=== PATIENT | male | born 1995 | race American Indian/Alaskan Native ===

== ENCOUNTER 2023-02-01 14:26 | Emergency (ER) | payer OTHER ==
[~2023-02-01] VITALS: Ht 175.3 cm; Wt 88.5 kg
[2023-02-01] MEDS ORDERED: OMEPRAZOLE20 MG PO (14:49)
[2023-02-01 16:23] VITALS: BP 119/80
--- NOTE | 2023-02-02 22:15 | EKG ---
[facility] [address] [facility] [place] [address] Signed Normal sinus rhythm with sinus arrhythmia Left anterior fascicular block Abnormal ECG When compared with ECG of 04-JUN-2016 06:40, sinus arrhythmia is now present Confirmed by Kirstin Rogers MD () on 02/02/2023 10:15:49 PM Electronically Signed By: KIRSTIN ROGERS MD 02/02/23 2215 PATIENT NAME: SHELBYKARLEY HARVEY Electrocardiogram DATE OF : [birth year] PHYSICIAN: KIRSTIN ROGERS MD REPORT #: [id number] REPORT IS CONFIDENTIAL AND NOT TO BE RELEASED WITHOUT AUTHORIZATION
== END 2023-02-01 16:23 | disposition home or self-care (01) ==
LOC: ED 14:26
DX: R07.89 Other chest pain (principal); Z88.2 Allergy status to sulfonamides
CPT/HCPCS: 36415; 71046; 80053; 84484; 85025; 93005; 93010; 99285-25

== ENCOUNTER 2024-08-26 15:48 | Observation (INO) | payer OTHER ==
[~2024-08-26] VITALS: Ht 175.3 cm; Wt 107.4 kg
[~2024-08-26 15:48] MED LIST: OMEPRAZOLE20 MG PO
[2024-08-26] MEDS ORDERED: ondansetron HCL 4 MG/2 ML VIAL IV ONE (16:15)
[2024-08-26] MEDS ORDERED: SODIUM CHLORIDE 0.9% 1,000 ML IV ONE (16:15)
[2024-08-26] MEDS ORDERED: MORPHINE SULFATE 4 MG/ML VIAL IV ONE (16:15)
[2024-08-26] MEDS ORDERED: SEVOFLURANE 250 ML BTL INH ONE (16:35)
[2024-08-26] MEDS ORDERED: LACTATED RINGER'S 1,000 ML IV SCH ×3 (17:30→21:15)
[2024-08-26] MEDS ORDERED: FAMOTIDINE 20 MG/ 2 ML VIAL IV ONE (17:30)
[2024-08-26] MEDS ORDERED: CEFTRIAXONE SODIUM 1 GM in SODIUM CHLORIDE 0.9% 100 ML IV ONE (17:30)
[2024-08-26] MEDS ORDERED: metroNIDAZOLE/SODIUM CHLORIDE 500 MG/100 ML PIGGYBACK IV ONE (17:30)
[2024-08-26] MEDS ORDERED: CEFTRIAXONE SODIUM 1 GM VIAL IV ONE (17:37)
[2024-08-26 18:09] LABS: INR 0.98 (0.80-1.30); PROTIME 12.9 Sec (11.2-14.2)
[2024-08-26 18:30] LABS: ABO O; ANTIBODY SCREEN NEGATIVE; RH POSITIVE
[2024-08-26 18:56] LABS: BILIRUBIN, URINE NEGATIVE (negative); BLOOD/HGB, URINE NEGATIVE (Negative); KETONE, URINE NEGATIVE (Negative); LEUK ESTERASE, URINE NEGATIVE (negative); NITRITE, URINE NEGATIVE (negative); PH, URINE 6.5 (5-7)
[2024-08-26] MEDS ORDERED: MIDAZOLAM HCL 2 MG/2 ML VIAL ONE (19:01)
[2024-08-26] MEDS ORDERED: ondansetron HCL 4 MG/2 ML VIAL ONE (19:01)
[2024-08-26] MEDS ORDERED: ROCURONIUM BROMIDE 50 MG/5 ML SYR ONE ×2 (19:01→20:13)
[2024-08-26] MEDS ORDERED: ACETAMINOPHEN 1,000 MG/100 ML VIAL ONE (19:01)
[2024-08-26] MEDS ORDERED: fentaNYL citrate 100 MCG/2 ML VIAL ONE ×2 (19:01→19:54)
[2024-08-26] MEDS ORDERED: SUGAMMADEX SODIUM 200 MG/2 ML ML ONE (19:01)
[2024-08-26] MEDS ORDERED: LIDOCAINE HCL 2% 20 MG/ML VIAL INJ ONE (19:01)
[2024-08-26] MEDS ORDERED: SUCCINYLCHOLINE IN 0.9% NACL 200 MG/10 ML SYRINGE ONE (19:01)
[2024-08-26] MEDS ORDERED: KETOROLAC TROMETHAMINE 30 MG/ML VIAL ONE (19:01)
[2024-08-26] MEDS ORDERED: propofoL 200 MG/20 ML VIAL ONE (19:01)
[2024-08-26] MEDS ORDERED: LIDOCAINE HCL 2% 5 ML SDV ONE (19:01)
[2024-08-26] MEDS ORDERED: DEXAMETHASONE SOD PHOS 4 MG/ML VIAL ONE (19:01)
[2024-08-26] MEDS ORDERED: ondansetron HCL 4 MG/2 ML VIAL IV PRN ×2 (19:30→21:00)
[2024-08-26] MEDS ORDERED: dexmedeTOMIDine HCl 200 MCG/2 ML VIAL ONE (19:47)
[2024-08-26] MEDS ORDERED: droPERidol 5 MG/2 ML VIAL IV PRN (21:00)
[2024-08-26] MEDS ORDERED: FAMOTIDINE 20 MG/ 2 ML VIAL IV SCH (21:00)
[2024-08-26] MEDS ORDERED: HYDROmorphone HCL 1 MG/ML SYR IV PRN (21:00)
[2024-08-26] MEDS ORDERED: fentaNYL citrate 50 MCG/ML SDV IV PRN (21:00)
[2024-08-26] MEDS ORDERED: IBLOOD GLUCOSE TEST STRIP 1 EA TEST VI PRN (21:00)
[2024-08-26] MEDS ORDERED: NALOXONE HCL 0.4 MG SYR IV PRN (21:00)
[2024-08-26] MEDS ORDERED: PROCHLORPERAZINE EDISYLATE 10 MG/2 ML VIAL IV PRN (21:00)
--- NOTE | 2024-08-26 21:03 | NUR ---
08/26/242102 ZOHAIB VILLALOBOS 2048 PT ARRIVED TO PACU VIA STREACHER. PT BREATHING EQUAL AND UNLABORED. PT RESPONSIVE BUT DISORIENTED. PT REORIENTED TO PACU. PT SAYS HE HAS NO PAIN AT THIS TIME. PT ON 6L OF OXYGEN VIA FACE MASK. PT HAS SMALL AMOUNT OF RED DRAINAGE FROM L NARE DUE TO NASAL AIRWAY PLACED DURING CASE. PT ATTEMPTED TO SCRATCH AT FACE AND EYES, PT ORIENTED TO NOT DUE SO, PT UNDERSTANDING. VITALS TAKEN. 20G IV IN L AC RUNNING LR CONTINUOUSLY. 2054 OXYGEN REMOVED FROM PT DUE TO O2 SAT STAYING AT 100%. PT OXYGEN SATURATION STAYING ABOVE 90% ON RA. PT STATES HE HAS A TOLERABLE 1/10 PAIN IN ABDOMEN. PT REPORTS NO NAUSEA AT THIS TIME.
--- NOTE | 2024-08-26 21:34 | NUR ---
PATIENT TO THE FLOOR BY VEHICLE BODY MAKER. VS OBTAINED AND RECORDED. ASSESSMENT COMPLETE. x3 ABD LAP SITES WITH STERI STRIPS C/D/I WITH MINIMAL DRAINAGE. SCDs IN PLACE. CPOX IN PLACE. PATIENT EDUCATED TO ROOM AND CALL LIGHT. PATIENT VERBALIZES UNDERSTANDING. NO FURTHER NEEDS. CALL LIGHT IN REACH. PYROGLAZER REMAINS IN ROOM.
[2024-08-26 21:35] VITALS: BP 123/60
--- NOTE | 2024-08-26 21:48 | NUR ---
MD AVINA CALLED VIA TELEPHONE BY THIS RN REGARDING PAIN MEDICATIONS. NEW ORDERS RECEIVED. VERIFIED USING REPEAT BACK METHOD.
--- NOTE | 2024-08-26 21:59 | NUR ---
pt ARRIVES IN HOSPITAL BED WITH TYPING SECTION CHIEF. PRIMARY RNS IN ROOM. ADMISSION HISTORY COMPLETE. ICE PACK AND WATER PROVIDED TO pt. CALL LIGHT IN REACH. ORIENTATION TO ROOM PROVIDED. MOTHER IN ROOM.
[2024-08-26] MEDS ORDERED: MORPHINE SULFATE 4 MG/ML VIAL IV PRN (22:00)
[2024-08-26] MEDS ORDERED: HYDROCODONE/ACETA 5/325 TAB PO PRN (22:00)
[2024-08-26 22:31] VITALS: BP 104/65
[2024-08-26 22:35] VITALS: BP 104/65
--- NOTE | 2024-08-26 22:42 | NUR ---
PATIENT RESTING IN BED. VS OBTAINED AND RECORDED. PATIENT ABLE TO EAT CRACKERS AND DRINK WATER. TOELRATING PO WELL. PRN PAIN MEDICATION ADMINISTERED PER PATIENT REQUEST FOR 3/10 ABD PAIN. PATIENT DENIES FURTHER NEEDS. CALL LIGHT IN REACH.
[2024-08-26 23:34] VITALS: BP 108/69
[2024-08-26 23:35] VITALS: BP 108/69
--- NOTE | 2024-08-26 23:38 | NUR ---
PATIENT RESTING IN BED COMFORTABLY, WOKE TO RN ENTERING ROOM. VS OBTAINED AND RECORDED. JELLO PROVIDED PER REQUEST. PATIENT DENIES FURTHER NEEDS. CALL LIGHT WITHIN REACH.
--- NOTE | 2024-08-27 00:29 | NUR ---
ASSISTED PATIENT GET UP AT BEDSIDE TO USE THE URINAL. PATIENT STATED I DONT FEEL TRUSTING MYSELF UP AT THIS TIME. PATIENT VOIDED 800ML YELLOW URINE. PATIENT IS BACK IN BED. WARM BLANKET AND ICE WATER PROVIDED. SCD'S AND CPOX ARE ON.
[2024-08-27 00:45] VITALS: BP 105/63
[2024-08-27 00:46] VITALS: BP 105/63
--- NOTE | 2024-08-27 00:46 | NUR ---
PATIENT RESTING IN BED COMFORTABLY, WOKE TO RN ENTERING ROOM. VS OBTAINED AND DOCUMENTED. PATIENT DENIES ANY NEEDS, CALL LIGHT WITHIN REACH.
--- NOTE | 2024-08-27 02:42 | NUR ---
PATIENT RESTING COMFORTABLY IN BED, WOKE TO RN ENTERING ROOM. CRACKERS PROVIDED PER REQUEST, DENIES ANY OTHER NEEDS. CALL LIGHT WITHIN REACH.
[2024-08-27] MEDS ORDERED: KETOROLAC TROMETHAMINE 30 MG/ML VIAL IV PRN (03:00)
--- NOTE | 2024-08-27 04:19 | NUR ---
PATIENT RESTING IN BED WITH EYES CLOSED, RESPIRATIONS EVEN AND UNLABORED. NO NEEDS IDENTIFIED, CALL LIGHT WITHIN REACH.
[2024-08-27] MEDS ORDERED: CEFTRIAXONE SODIUM 2 GM VIAL ONE (05:23)
[2024-08-27 05:48] VITALS: BP 116/63
[2024-08-27 05:53] VITALS: BP 116/63
--- NOTE | 2024-08-27 05:56 | NUR ---
PT RESTING IN BED COMFORTABLY, SCHEDULED AND PRN MEDICATIONS GIVEN. VS OBTAINED AND RECORDED. PATIENT DENIES ANY FURTHER NEEDS, CALL LIGHT IN REACH.
[2024-08-27] MEDS ORDERED: metroNIDAZOLE/SODIUM CHLORIDE 500 MG/100 ML PIGGYBACK IV ONE (06:00)
[2024-08-27] MEDS ORDERED: CEFTRIAXONE SODIUM 2 GM in SODIUM CHLORIDE 0.9% 100 ML IV ONE (06:00)
[2024-08-27] MEDS ORDERED: ACETAMINOPHEN 500 MG TAB PO SCH (06:00)
--- NOTE | 2024-08-27 06:40 | NUR ---
SCHEDULED MEDICATIONS ADMINISTERED PER MAR. PATIENT RESTING IN BED COMFORTABLY, DENIES ANY NEEDS. CALL LIGHT WITHIN REACH.
--- NOTE | 2024-08-27 07:40 | NUR ---
PT AWAKE AND ALRET IN BED. STATES PAIN IS TOLERABLE AT THIS TIME. CALL LIGHT WITHIN REACH.
--- NOTE | 2024-08-27 07:43 | NUR ---
UR CLINICAL REVIEW: SEBASTIÁN, MEETS OBS CRITERIA FOR APPENDECTOMY NEED FOR IV ANALGESICS [place] OBS 08/26/2024 @ 1925 ORDER MATCHES REG NO AUTH NEEDED FOR OBS PER MEDICAID. PLAN TO DC HOME WHEN MEDICALLY STABLE, LIKELY TODAY. 08/28/24
--- NOTE | 2024-08-27 08:40 | NUR ---
PATIENT MEDICATED PER EMR. DENIES ANY OTHER NEEDS AT THIS TIME. CALL LIGHT WITHIN REACH. FLUIDS INFUSING.
--- NOTE | 2024-08-27 09:30 | NUR ---
PATIENT REPORTING INCREASE IN PAIN. DR AVINA NOTIFIED. NEW ORDER FOR PAIN MEDICATION RECIEVED.
[2024-08-27 09:32] VITALS: BP 111/49
[2024-08-27] MEDS ORDERED: OXYCODONE HCL5 MG PO (09:45)
[2024-08-27] MEDS ORDERED: OXYCODONE HCL 5 MG TAB PO PRN (09:45)
[2024-08-27] MEDS ORDERED: MOTRIN IB200 MG PO (09:46)
[2024-08-27] MEDS ORDERED: ACETAMINOPHEN500 MG PO (09:46)
--- NOTE | 2024-08-27 09:50 | NUR ---
Spoke with Jesus. He plans on dc today. He has seen Dr. Campos. Pt plans on going home with family. He has a ramp and no steps into his 1 story home. He does not use any DME and is active. He drives. [place] He denies any needs. Will dc to home today with family.
--- NOTE | 2024-08-27 10:00 | NUR ---
SBA to bathroom. SCD's and CPOX reattached. Doctor entered room.
--- NOTE | 2024-08-27 10:05 | NUR ---
PATIENT MEDICATED PER EMR. DENIES ANY OTHER NEEDS AT THIS TIME. CALL LIGHT WITHIN REACH.
--- NOTE | 2024-08-27 10:06 | HP ---
[facility] [address], [place] [address] Signed ADMISSION DATE: 08/26/2024 ADMISSION DIAGNOSIS: Acute appendicitis. HISTORY OF PRESENT ILLNESS: This 29-year-old [place] man is accompanied by his mother. His girlfriend remains at home. Yesterday, he began having difficulty with eating, feeling somewhat nauseated and symptoms worsened today, now to include abdominal pain mostly in the right lower quadrant. He presented to the emergency room having been seen first by Dr. Vidales at [facility] where he was found to have right lower abdominal pain and tenderness, and elevated white count performed at [facility], which was 12.8. Platelet count was 318,000. His hematocrit was 40.5. He was considered likely to have appendicitis and upon presentation in the emergency room, was thoroughly evaluated by Dr. Armendariz and found to have appendicitis in part related to his CT scan confirming that. His urinalysis performed at [facility] was normal as well. He is admitted for further evaluation and care. PAST MEDICAL HISTORY: Negative for any abdominal surgery in the past. He has had gastroesophageal reflux problems in the past, amblyopia in the left eye, hypermetropia on the left, open-angle glaucoma bilaterally considered low risk. 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 He is accompanied by his mother, though he does have a live-in girlfriend. REVIEW OF SYSTEMS: He denies any shortness of breath or chest pain. He has had no dysphagia, dysuria or hematemesis or blood per rectum. PHYSICAL EXAMINATION: GENERAL: Very pleasant [place] man who does not look systemically toxic. HEENT: Mucous membranes are slightly moist. Trachea is midline. CHEST: Shows normal respiratory excursion, pulses regular. ABDOMEN: Nondistended. Rovsing sign is positive. He does have tenderness at McBurney's point. EXTREMITIES: Show no clubbing, cyanosis, or edema. LAB STUDIES: As previously noted. CT scan findings also. Electronically Signed By: MARKELL AVINA MD 08/27/24 1006 PATIENT NAME: KARLEY GABRIEL HISTORY AND PHYSICAL DATE OF : [birth year] REPORT #: [id number] PHYSICIAN: MARKELL AVINA MD PCP: AMIE VIDALES MD REPORT IS CONFIDENTIAL AND NOT TO BE RELEASED WITHOUT AUTHORIZATION [facility] [address], [place] [address] Signed ASSESSMENT: The patient has acute appendicitis, not likely perforated based on its timeline and clinical and radiographic appearance. He has undergone fluid administration and antibiotic, ceftriaxone and Flagyl administration. I have recommended appendectomy preferred by laparoscopic approach. I did discuss nonoperative approaches, which I would not advocate in his situation. His mother and patient himself agree and wished to proceed with operation this evening. MD CHRISTIE Uriostegui/AZRA /[id number] cc: Dr. Armendariz [facility] [place] [facility] Dr. Vidales [facility] Copies: ~ Electronically Signed By: MARKELL AVINA MD 08/27/24 1006 PATIENT NAME: KARLEY GABRIEL ESVIN HISTORY AND PHYSICAL DATE OF : [birth year] REPORT #: [id number] PHYSICIAN: MARKELL AVINA MD PCP: AMIE VIDALES MD REPORT IS CONFIDENTIAL AND NOT TO BE RELEASED WITHOUT AUTHORIZATION
--- NOTE | 2024-08-27 10:06 | OR ---
[facility] [address], [place] [address] Signed DATE OF OPERATION: 08/26/2024 SURGEON: Markell Avina MD PREOPERATIVE DIAGNOSIS: Acute appendicitis. POSTOPERATIVE DIAGNOSIS: Acute suppurative appendicitis. PROCEDURE: Laparoscopic appendectomy. ANESTHESIA: General endotracheal, Silvano Hyde, PROMOTIONS DIRECTOR and a local 10 mL of 0.25% Marcaine with epinephrine. INDICATIONS: This 29-year-old man presented to the emergency room this evening with right lower abdominal pain, having had pain for approximately 24 hours. Evaluation showed an elevated white count to 12.8, normal urinalysis. A CT scan and clinical exam consistent with acute appendicitis. He has been fluid resuscitated, given preoperative antibiotic, ceftriaxone and Flagyl and now to undergo appendectomy preoperative by laparoscopic approach. The patient and his mother who attends to him understands the risk of bleeding, infection, need for open procedure and other unforeseen complications and wished to proceed. FINDINGS: Indeed the appendix was quite inflamed, dilated and suppurative, but without sign of perforation proper. Appendectomy was performed without complications. Transection of the appendix flushed with the cecum was accomplished to control the mesenteric area undertaken as well. The liver and terminal ileum and other intraabdominal organs that were visualized, were normal. DESCRIPTION OF PROCEDURE: The patient was brought to the operating room, given a general endotracheal anesthetic. Preoperative antibiotic, ceftriaxone and Flagyl had been given. Sequential compression device stockings were used. The abdomen was clipped and prepared with chlorhexidine solution after satisfactory general endotracheal anesthesia and then prepared with a chlorhexidine solution more fully. After sterile draping, an infraumbilical incision Electronically Signed By: MARKELL AVINA MD 08/27/24 1006 PATIENT NAME: KARLEY GABRIEL OPERATIVE REPORT DATE OF : [birth year] REPORT #: [id number] PHYSICIAN: MARKELL AVINA MD PCP: AMIE PACHECO MD REPORT IS CONFIDENTIAL AND NOT TO BE RELEASED WITHOUT AUTHORIZATION [facility] [address], [place] [address] Signed was made and using an open Zay cannula technique. Pneumoperitoneum was achieved at the level of 14 mmHg of carbon dioxide gas. Intra-abdominal inspection showed no sign of ascites or carcinomatosis. The appendix was not visualized at that point, though there was some inflammatory fat in the right lower quadrant. The liver and gallbladder appeared normal. An epigastric 12 mm port was placed under direct visualization and the camera replaced to that site. A single hand manipulation of the right lower abdominal contents including the cecum did find a mobile, but suppurative, inflamed and dilated appendix. Through a right lower quadrant 5 mm port, two hand manipulation of the cecum and ileum was undertaken, noting a normal ileum, but dilated and inflamed appendix. The appendix was elevated in the mesentery and easily evaluated. A window was created between the mesoappendix and the base of the appendix and a window created there. Ultimately, an Endo-LUIZA stapling device with an enteric load was used to transect the base of the appendix flushed with the cecum. The mesoappendix was then dissected free with electrocautery isolating the vessels. A few clips were required so as to secure hemostasis. Once the mesoappendix was fully well characterized and mobilized, the Endo LUIZA stapling device was used with a vascular load to transect the appendiceal mesentery. The appendix was placed in an endobag and extracted through the infraumbilical port without problem, found to be quite bulky, firm and very inflamed. It was passed for permanent pathology. Irrigation was undertaken at the staple line area showing no sign of bleeding. No cautery was used on the staple line securing hemostasis. Irrigation was undertaken. Excess irrigation fluid suctioned free. Once hemostasis was assured the laparoscope was directed to the right lower quadrant 5 mm port, which was removed without problem showing no sign of bleeding. The camera was replaced. The infraumbilical site in the epigastric port was removed. Closure of the infraumbilical fascial incision was undertaken with interrupted 0 Vicryl suture. A 10 mL of 0.25% Marcaine with epinephrine was injected locally. Soft tissue and skin was then closed with interrupted 2-0 Vicryl. Steri-Strips were applied to the incisions. The patient was extubated in the operating room having suffered no known complications. Sponge, needle, and instrument counts were as correct x3. MD CHRISTIE Uriostegui/MODL /[id number] cc: Dr. Armendariz Electronically Signed By: MARKELL AVINA MD 08/27/24 1006 PATIENT NAME: KARLEY GABRIEL OPERATIVE REPORT DATE OF : [birth year] REPORT #: [id number] PHYSICIAN: MARKELL AVINA MD PCP: AMIE PACHECO MD REPORT IS CONFIDENTIAL AND NOT TO BE RELEASED WITHOUT AUTHORIZATION [facility] [address] [place], [place] [address] Signed [facility] Dr. Pacheco [facility] Copies: ~ Electronically Signed By: MARKELL AVINA MD 08/27/24 1006 PATIENT NAME: KARLEY GABRIEL [employer] OPERATIVE REPORT DATE OF : [birth year] REPORT #: [id number] PHYSICIAN: MARKELL AVINA MD PCP: AMIE PACHECO MD REPORT IS CONFIDENTIAL AND NOT TO BE RELEASED WITHOUT AUTHORIZATION
[2024-08-27 10:45] VITALS: BP 111/49
--- NOTE | 2024-08-29 12:17 | PATH ---
[facility] [address] [place], [place] [address] Signed SPECIMEN(S): A APPENDIX SPECIMEN SOURCE: A. APPENDIX CLINICAL HISTORY: Appendicitis, abdominal pain FINAL PATHOLOGIC DIAGNOSIS: Appendix, appendectomy: - Morphologic features consistent with acute appendicitis. NA MICROSCOPIC EXAMINATION: Histologic sections of all submitted blocks are examined by light microscopy. These findings, together with the gross examination, support the pathologic diagnosis. GROSS DESCRIPTION: The specimen, labeled and designated "Connie Will, appendix per requisition," is received in formalin and consists of Specimen: Appendix with mesoappendix. Dimensions: 13.3 x 1.5 x 1.4 cm. Serosa: [place]-purple with dilated vasculature and areas of purulent material. Defect: Not grossly identified. Inking: Staple line is inked Blue. Mucosa: Tuttle-brown and dilated up to 0.7 cm.. Fecalith: Not grossly identified. Additional: None. Petroleum Refining Equipment Operator sections are submitted in (A1). AA (under the direct supervision of a pathologist) The Gross Description was prepared using a voice recognition system. The report was reviewed for accuracy; however, sound-alike word errors, addition and/or deletions may occur. If there is any question about this report, please contact Client Services. ADDITIONAL NOTES: Immunohistochemical and/or in situ hybridization studies if performed in this case included appropriate positive controls that reacted as expected. This test was developed and its performance characteristics determined by [facility]. It has not been cleared or PATIENT NAME: KARLEY WILL PATHOLOGY DATE OF : [birth year] REPORT #: [id number] PHYSICIAN: ADRIANA HODGES PCP: AMIE PACHECO MD REPORT IS CONFIDENTIAL AND NOT TO BE RELEASED WITHOUT AUTHORIZATION [address] [address] Signed approved by the U.S. Food and Drug Administration. The FDA has determined that such clearance or approval is not necessary. This test is used for clinical purposes. It should not be regarded as investigational or for research. [facility] is certified under the Clinical Laboratory Improvement Amendments of 1988 (CLIA) as qualified to perform high complexity clinical laboratory testing. PERFORMING LABORATORY: Technical component was performed by [facility], [address] [place] [address] (CLIA# [id number]). Professional interpretation was performed by [facility], [address] [place] [address] (CLIA#: [id number]). Diagnostician: Driss Saldivar MD Pathologist Electronically Signed 08/29/2024 Copies: ~ PATIENT NAME: KARLEY WILL PATHOLOGY DATE OF : [birth year] REPORT #: [id number] PHYSICIAN: ADRIANA HODGES PCP: AMIE PACHECO MD REPORT IS CONFIDENTIAL AND NOT TO BE RELEASED WITHOUT AUTHORIZATION
== END 2024-08-27 11:15 | disposition home or self-care (01) ==
LOC: ED 15:48 → MS 15:50
PROVIDERS: Emergency Medicine; ADMIT Surgery; ATTEND Surgery
PROC: 0DTJ0ZZ Resection of Appendix, Open Approach (ICD-10-PCS; principal; 2024-08-26 20:00)
DX: K35.80 Unspecified acute appendicitis (principal); K21.9 Gastro-esophageal reflux disease without esophagitis; Z88.2 Allergy status to sulfonamides; Z88.8 Allergy status to other drugs, medicaments and biological substances
CPT/HCPCS: 00840; 36415; 74177; 81003; 83690; 85610; 86850; 86900; 86901; 88304; 94762; 96361; 96374; 96375; 99285-25; A9270; G0378; J0131; J0330; J1100; J1885; J2003; J2250; J2270; J2405; J2704; J3010; J3490; J7030; J7121; Q9967